=== PATIENT | female | born 1985 | race Caucasian/White ===

== ENCOUNTER 2016-09-27 18:43 | Emergency (ER) | payer OTHER ==
[~2016-09-27] VITALS: Ht 170.2 cm; Wt 86.2 kg
[~2016-09-27 18:43] MED LIST: BENZ100C PO; CLIN-44 PO; Ibuprofen PO; LORA-434 PO; OXYC-323 PO; PRED50TA PO; PROAIR RESPICL90 MCG IH; TOBR5DRO6 OS; TRAM-29 PO
[2016-09-27 20:26] LABS: BASO # 0.1 x10^3/uL (0.0-0.2); BASO % 1 % (0-3); EOS % 4 % (0-3); HEMATOCRIT 45.9 % (36.0-47.0); HEMOGLOBIN 15.3 g/dL (12.0-15.5); LYMPH # 4.2 x10^3/uL (1.0-4.8); LYMPH % 28 % (24-48); MEAN CORPUSCULAR HEMOGLOBIN 30 pg (25-35); MEAN CORPUSCULAR HGB CONC 33 g/dL (31-37); MEAN CORPUSCULAR VOLUME 90 fL (79-100); MONO % 6 % (0-9); NEUT % 61 % (31-73); PLATELET COUNT 192 x10^3/uL (140-400); RED BLOOD COUNT 5.12 x10^6/uL (3.50-5.40); RED CELL DISTRIBUTION WIDTH 13.2 % (11.5-14.5); WHITE BLOOD COUNT 14.9 x10^3/uL (4.0-11.0)
[2016-09-27 20:27] LABS: BILIRUBIN,URINE NEGATIVE (NEG); GLUCOSE,URINE NEGATIVE (NEG); NITRITE,URINE NEGATIVE (NEG); PH,URINE 6.5; PROTEIN,URINE NEGATIVE (NEG-TRACE); UROBILINOGEN,URINE 0.2 mg/dL (0.2 mg/dL)
[2016-09-27] MEDS ORDERED: HYDROCODONE/APAP 5/325MG TABLET. PO ONE (20:30)
[2016-09-27 20:37] LABS: CALCIUM 9.2 mg/dL (8.5-10.1); CREATININE 0.7 mg/dL (0.6-1.0); GFR 96.4; POTASSIUM 3.7 mmol/L (3.5-5.1)
[2016-09-27 20:37] LABS: BACTERIA,URINE MODERATE /HPF (0-FEW); SQUAMOUS EPITHELIAL CELL,UR FEW /LPF
[2016-09-27 20:38] LABS: TRICHOMONAS,URINE PRESENT; YEAST,URINE PRESENT /HPF
[2016-09-27 20:43] LABS: ALBUMIN 3.5 g/dL (3.4-5.0); TOTAL BILIRUBIN 0.3 mg/dL (0.2-1.0); TOTAL PROTEIN 6.9 g/dL (6.4-8.2)
[2016-09-27] MEDS ORDERED: DOXY100T PO (21:06)
--- NOTE | 2016-09-27 21:07 | PHYS DOC ---
Past Medical History Past Medical History: Anxiety, GERD, Other Additional Past Medical Histor: HYPOGLYCEMIA Past Surgical History: Cholecystectomy, Tubal ligation, Other Additional Past Surgical Histo: dental Alcohol Use: Occasionally Drug Use: None Adult General Chief Complaint Chief Complaint: ABDOMINAL PAIN HPI HPI Patient is a 31 year old female who presents with complaint of left-sided abdominal pain. Patient states that her symptoms started yesterday morning. Patient states that her pain is been intermittent and rates it as 8 out of 10. Patient states that this pain is sharp and cramping. Patient denies any associated nausea, vomiting, fevers, diarrhea, or bloody stools. Patient took Tylenol to help symptoms with no significant relief. The patient denies any dysuria or abnormal vaginal discharge. Review of Systems Review of Systems Constitutional: Denies fever or chills [] Eyes: Denies change in visual acuity, redness, or eye pain [] HENT: Denies nasal congestion or sore throat [] Respiratory: Denies cough or shortness of breath [] Cardiovascular: Denies chest pain or edema [] GI: Abdominal pain, denies nausea, vomiting, bloody stools or diarrhea [] : Denies dysuria or hematuria [] Musculoskeletal: Denies back pain or joint pain [] Integument: Denies rash or skin lesions [] Neurologic: Denies headache, focal weakness or sensory changes [] Current Medications Current Medications Current Medications Medications (Trade) Dose Ordered Sig/Elly Start Time Stop Time Status Last Admin Dose Admin Acetaminophen/ Hydrocodone Bitart (Lortab 5/325) 1 tab 1X ONCE 09/27/16 20:30 09/27/16 20:31 DC 09/27/16 20:54 1 TAB Ceftriaxone Sodium (Rocephin Im) 250 mg 1X ONCE 09/27/16 21:30 09/27/16 21:31 DC 09/27/16 21:26 250 MG Metronidazole (Flagyl) 2,000 mg 1X ONCE 09/27/16 21:30 09/27/16 21:31 DC 09/27/16 21:26 2,000 MG Allergies Allergies Allergies Coded Allergies Type Severity Reaction Last Updated Verified Penicillins Allergy Intermediate Nausea and Vomiting 11/19/15 Yes butorphanol tartrate Allergy Intermediate 11/19/15 Yes Physical Exam Physical Exam Constitutional: Alert, afebrile, appears in mild discomfort. [] HENT: Normocephalic, atraumatic, bilateral external ears normal, oropharynx moist, no oral exudates, nose normal. [] Eyes: PERRLA, EOMI, conjunctiva normal, no discharge. [] Neck: Normal range of motion, no tenderness, supple, no stridor. [] Cardiovascular:Heart rate regular rhythm, no murmur [] Lungs & Thorax: Bilateral breath sounds clear to auscultation [] Abdomen: Bowel sounds normal, soft, left lower quadrant tenderness to palpation , no guarding or rebound tenderness, no masses, no pulsatile masses. [] Skin: Warm, dry, no erythema, no rash. [] Back: No tenderness, no CVA tenderness. [] Extremities: No tenderness, no cyanosis, no clubbing, ROM intact, no edema. [] Neurologic: Alert and oriented X 3, normal motor function, normal sensory function, no focal deficits noted. [] Current Patient Data Vital Signs Vital Signs Date Time Temp Pulse Resp B/P Pulse Ox O2 Delivery O2 Flow Rate FiO2 09/27/16 21:13 58 116/70 99 Room Air 09/27/16 20:54 16 09/27/16 19:17 97.8 97.8 Lab Values Laboratory Tests Test 09/27/16 19:14 09/27/16 19:33 09/27/16 19:41 Urine Collection Type Unknown Urine Color Yellow Urine Clarity Clear Urine pH 6.5 Urine Specific [place] 1.010 Urine Protein Negativemg/dL (NEG-TRACE) Urine Glucose (UA) Negativemg/dL (NEG) Urine Ketones (Stick) Negativemg/dL (NEG) Urine Blood Large (NEG) Urine Nitrite Negative (NEG) Urine Bilirubin Negative (NEG) Urine Urobilinogen Dipstick 0.2mg/dL (0.2 mg/dL) Urine Leukocyte Esterase Moderate (NEG) Urine RBC 6-10/HPF (0-2) Urine WBC 11-20/HPF (0-4) Urine Squamous Epithelial Cells Few/LPF Urine Bacteria Moderate/HPF (0-FEW) Urine Mucus Slight/LPF Urine Trichomonas Present Urine Yeast Present/HPF White Blood Count 14.9x10^3/uL (4.0-11.0) H Red Blood Count 5.12x10^6/uL (3.50-5.40) Hemoglobin 15.3g/dL (12.0-15.5) Hematocrit 45.9% (36.0-47.0) Mean Corpuscular Volume 90fL (79-100) Mean Corpuscular Hemoglobin 30pg (25-35) Mean Corpuscular Hemoglobin Concent 33g/dL (31-37) Red Cell Distribution Width 13.2% (11.5-14.5) Platelet Count 192x10^3/uL (140-400) Neutrophils (%) (Auto) 61% (31-73) Lymphocytes (%) (Auto) 28% (24-48) Monocytes (%) (Auto) 6% (0-9) Eosinophils (%) (Auto) 4% (0-3) H Basophils (%) (Auto) 1% (0-3) Neutrophils # (Auto) 9.2x10^3uL (1.8-7.7) H Lymphocytes # (Auto) 4.2x10^3/uL (1.0-4.8) Monocytes # (Auto) 0.9x10^3/uL (0.0-1.1) Eosinophils # (Auto) 0.6x10^3/uL (0.0-0.7) Basophils # (Auto) 0.1x10^3/uL (0.0-0.2) Sodium Level 144mmol/L (136-145) Potassium Level 3.7mmol/L (3.5-5.1) Chloride Level 107mmol/L (98-107) Carbon Dioxide Level 30mmol/L (21-32) Anion Gap 7 (6-14) Blood Urea Nitrogen 4mg/dL (7-20) L Creatinine 0.7mg/dL (0.6-1.0) Estimated GFR (Cockcroft-Gault) 96.4 BUN/Creatinine Ratio 6 (6-20) Glucose Level 97mg/dL (70-99) Calcium Level 9.2mg/dL (8.5-10.1) Total Bilirubin 0.3mg/dL (0.2-1.0) Aspartate Amino Transferase (AST) 9U/L (15-37) L Alanine Aminotransferase (ALT) 18U/L (14-59) Alkaline Phosphatase 63U/L (46-116) Total Protein 6.9g/dL (6.4-8.2) Albumin 3.5g/dL (3.4-5.0) Albumin/Globulin Ratio 1.0 (1.0-1.7) Lipase 196U/L (73-393) POC Urine HCG, Qualitative Hcg negative (Negative) Laboratory Tests 09/27/16 19:33 Laboratory Tests 09/27/16 19:33 EKG EKG Not performed [] Radiology/Procedures Radiology/Procedures Not performed [] Course & Med Decision Making Course & Med Decision Making Pertinent Labs and Imaging studies reviewed. (See chart for details) Patient found to have Trichomonas in her urine. The patient was treated with 2 g of oral Flagyl. Due to presence of sexually-transmitted infection, the patient was also treated for possible coinfection with gonorrhea and chlamydia. Patient given IM Rocephin and patient will be discharged on 10 day course of doxycycline. Also recommended use of [id number] Gyne-Lotrimin for treatment of vaginal candidiasis. Advised patient to inform any sexual partners of positive test and recommend that they seek medical evaluation for possible presence of infection. Advised return to emergency department for any worsening symptoms. Patient voiced understanding and in agreement with treatment plan. Dragon Disclaimer Dragon Disclaimer This electronic medical record was generated, in whole or in part, using a voice recognition dictation system. Departure Departure Impression: Primary Impression: Trichomoniasis Additional Impressions: UTI (urinary tract infection) Yeast infection Disposition: 01 HOME, SELF-CARE Condition: IMPROVED Referrals: NO PCP (PCP) Patient Instructions: Trichomoniasis, Urinary Tract Infection Additional Instructions: You were found to have a sexually transmitted infection on your In the emergency department. It is recommended that you inform any sexual partners that they may have a sexually transmitted infection and will need medical evaluation for treatment. Failure to do so may result in reinfection with any further sexual contact. Follow-up in 5 days with your primary doctor and return to emergency department for any worsening symptoms. Scripts Doxycycline Hyclate 100 Mg Tablet1 Tab PO BID #20 TAB Prov:MARSHA STANFORD MD 09/27/16 Problem Qualifiers Additional Impressions: UTI (urinary tract infection) Urinary tract infection type: site unspecified Hematuria presence: without hematuria Qualified Code: N39.0 - Urinary tract infection, site not specified MARSHA STANFORD MD Sep 27, 2016 21:06
[2016-09-27 21:13] VITALS: BP 116/70
[2016-09-27] MEDS ORDERED: METRONIDAZOLE 500 MG TABLET. PO ONE (21:30)
[2016-09-27] MEDS ORDERED: CEFTRIAXONE IM 250 MG VIAL. IM ONE (21:30)
== END 2016-09-27 21:30 | disposition home or self-care (01) ==
LOC: ER 18:43
DX: A59.9 Trichomoniasis, unspecified (principal); B37.49 Other urogenital candidiasis; F41.9 Anxiety disorder, unspecified; K21.9 Gastro-esophageal reflux disease without esophagitis; Z90.49 Acquired absence of other specified parts of digestive tract; Z98.51 Tubal ligation status; Z88.8 Allergy status to other drugs, medicaments and biological substances; Z88.0 Allergy status to penicillin
CPT/HCPCS: 36415; 80053; 81001; 81025; 83690; 85027; 96372; 99284; J0696; 87086

== ENCOUNTER 2017-07-04 07:44 | Emergency (ER) | payer OTHER ==
[~2017-07-04] VITALS: Ht 170.2 cm; Wt 68.0 kg
[~2017-07-04 07:44] MED LIST changes: -CLIN-44 PO; +CLIN150C14 PO; +DOXY100T PO; -TRAM-29 PO; +TRAM-48 PO
[2017-07-04 08:10] VITALS: BP 132/77
--- NOTE | 2017-07-04 08:22 | PHYS DOC ---
Past Medical History Past Medical History: Anxiety, GERD, Other Additional Past Medical Histor: HYPOGLYCEMIA Past Surgical History: Cholecystectomy, Tubal ligation, Other Additional Past Surgical Histo: dental Alcohol Use: Occasionally Drug Use: None Adult General Chief Complaint Chief Complaint: FLANK PAIN HPI HPI Patient is a 31 year old female who presents with complaint of right-sided mid back pain. Patient states that her symptoms started 2 days ago and have progressively worsened since onset. Patient states that the pain is sharp and located in between her ribs towards her mid back. Patient states that the pain radiates around towards her front. Patient rates her pain currently as 9 out of 10. Patient states that the pain worsens with movement and with deep inspiration. Patient states that the pain seems to be relieved by direct palpation of the area. Patient has not had any associated symptoms including fevers, dysuria, hematuria, nausea, or vomiting. The patient states that she took 200 mg of ibuprofen yesterday which gave partial relief of symptoms. Review of Systems Review of Systems Constitutional: Denies fever or chills [] Eyes: Denies change in visual acuity, redness, or eye pain [] HENT: Denies nasal congestion or sore throat [] Respiratory: Denies cough or shortness of breath [] Cardiovascular: Denies chest pain or edema[] GI: Denies abdominal pain, nausea, vomiting, bloody stools or diarrhea [] : Denies dysuria or hematuria [] Musculoskeletal: Right-sided mid back pain[] Integument: Denies rash or skin lesions [] Neurologic: Denies headache, focal weakness or sensory changes [] All other systems were reviewed and found to be within normal limits, except as documented in this note. Current Medications Current Medications Current Medications Medications (Trade) Dose Ordered Sig/Elly Start Time Stop Time Status Last Admin Dose Admin Ketorolac Tromethamine (Toradol Im) 60 mg 1X ONCE 07/04/17 08:30 07/04/17 08:31 DC 07/04/17 08:46 60 MG Orphenadrine Citrate (Norflex) 60 mg 1X ONCE 07/04/17 08:30 07/04/17 08:31 DC 07/04/17 08:48 60 MG Allergies Allergies Allergies Coded Allergies Type Severity Reaction Last Updated Verified Penicillins Allergy Intermediate Nausea and Vomiting 11/19/15 Yes butorphanol tartrate Allergy Intermediate 11/19/15 Yes Physical Exam Physical Exam Constitutional: Alert, afebrile, appears in mild to moderate discomfort. [] HENT: Normocephalic, atraumatic, bilateral external ears normal, oropharynx moist, no oral exudates, nose normal. [] Eyes: PERRLA, EOMI, conjunctiva normal, no discharge. [] Neck: Normal range of motion, no tenderness, supple, no stridor. [] Cardiovascular:Heart rate regular rhythm, no murmur [] Lungs & Thorax: Bilateral breath sounds clear to auscultation [] Abdomen: Bowel sounds normal, soft, no tenderness, no masses, no pulsatile masses. [] Skin: Warm, dry, no erythema, no rash. [] Back: No midline tenderness, right mid thoracic intercostal tenderness to palpation, no CVA tenderness, no flank ecchymosis. [] Extremities: No tenderness, no cyanosis, no clubbing, ROM intact, no edema. [] Neurologic: Alert and oriented X 3, normal motor function, normal sensory function, no focal deficits noted. [] Current Patient Data Vital Signs Vital Signs Date Time Temp Pulse Resp B/P (MAP) Pulse Ox O2 Delivery O2 Flow Rate FiO2 07/04/17 08:10 98.0 74 18 132/77 (95) 98 Room Air 98.0 Lab Values Laboratory Tests Test 07/04/17 08:40 07/04/17 08:52 Urine Collection Type Unknown Urine Color Yellow Urine Clarity Cloudy Urine pH 6.0 Urine Specific [place] 1.015 Urine Protein Negative mg/dL (NEG-TRACE) Urine Glucose (UA) Negative mg/dL (NEG) Urine Ketones (Stick) Negative mg/dL (NEG) Urine Blood Negative (NEG) Urine Nitrite Negative (NEG) Urine Bilirubin Negative (NEG) Urine Urobilinogen Dipstick 0.2 mg/dL (0.2 mg/dL) Urine Leukocyte Esterase Trace (NEG) Urine RBC Occ /HPF (0-2) Urine WBC 1-4 /HPF (0-4) Urine Squamous Epithelial Cells Many /LPF Urine Bacteria Moderate /HPF (0-FEW) Urine Mucus Slight /LPF POC Urine HCG, Qualitative Hcg negative (Negative) EKG EKG Not performed[] Radiology/Procedures Radiology/Procedures Not performed[] Course & Med Decision Making Course & Med Decision Making Pertinent Labs and Imaging studies reviewed. (See chart for details) Patient was given IM Norflex and Toradol for treatment of suspected intercostal muscle strain. UA showed slight contamination but no convincing evidence for active infection. The patient will continue on ibuprofen and Flexeril for outpatient treatment. Advised follow-up in 3-5 days a primary doctor if symptoms are not improving and return to emergency department for any worsening symptoms. Patient voiced understanding and in agreement with treatment plan. Dragon Disclaimer Dragon Disclaimer This electronic medical record was generated, in whole or in part, using a voice recognition dictation system. Departure Departure Impression: Primary Impression: Intercostal muscle strain Disposition: HOME, SELF-CARE Condition: IMPROVED Referrals: NO PCP (PCP) Patient Instructions: Muscle Strain Additional Instructions: Follow-up to primary doctor in 3-5 days if symptoms are not improving. Return to emergency department for any worsening symptoms. Scripts Ibuprofen (IBUPROFEN) 600 Mg Tablet 600 MG PO Q6HRS Y for INFLAMMATION, #30 TAB Prov: MARSHA STANFORD MD 07/04/17 Cyclobenzaprine Hcl (CYCLOBENZAPRINE HCL) 10 Mg Tablet 1 TAB PO QHS Y for MUSCLE SPASMS, #15 TAB Prov: MARSHA STANFORD MD 07/04/17 Problem Qualifiers Primary Impression: Intercostal muscle strain Encounter type: initial encounter Qualified Codes: S29.011A - Strain of muscle and tendon of front wall of thorax, initial encounter MARSHA STANFORD MD Jul 04, 2017 08:22
[2017-07-04] MEDS ORDERED: KETOROLAC 60 MG/2 ML INJ. IM ONE (08:30)
[2017-07-04] MEDS ORDERED: ORPHENADRINE CITRATE 60 MG/2 ML VIAL. IM ONE (08:30)
[2017-07-04 08:58] LABS: BILIRUBIN,URINE NEGATIVE (NEG); GLUCOSE,URINE NEGATIVE (NEG); NITRITE,URINE NEGATIVE (NEG); PROTEIN,URINE NEGATIVE (NEG-TRACE); UROBILINOGEN,URINE 0.2 mg/dL (0.2 mg/dL)
[2017-07-04 09:14] LABS: SQUAMOUS EPITHELIAL CELL,UR MANY /LPF
[2017-07-04 09:16] LABS: BACTERIA,URINE MODERATE /HPF (0-FEW); RBC,URINE OCC /HPF (0-2)
[2017-07-04] MEDS ORDERED: IBUP-1007 PO (09:29)
[2017-07-04] MEDS ORDERED: CYCL10TA2 PO (09:29)
== END 2017-07-04 10:00 | disposition home or self-care (01) ==
LOC: ER 07:44
DX: S29.011A Strain of muscle and tendon of front wall of thorax, initial encounter (principal); M54.6 Pain in thoracic spine; F41.9 Anxiety disorder, unspecified; K21.9 Gastro-esophageal reflux disease without esophagitis; Z88.0 Allergy status to penicillin; Z90.49 Acquired absence of other specified parts of digestive tract; Z88.8 Allergy status to other drugs, medicaments and biological substances; X58.XXXA Exposure to other specified factors, initial encounter; Y93.89 Activity, other specified; Y92.89 Other specified places as the place of occurrence of the external cause; Y99.8 Other external cause status
CPT/HCPCS: 81001; 81025; 87086; 96372; 99284; J1885; J2360

== ENCOUNTER 2018-11-25 12:36 | Emergency (ER) | payer OTHER ==
[~2018-11-25] VITALS: Ht 157.5 cm; Wt 68.0 kg
[~2018-11-25 12:36] MED LIST changes: +CYCL10TA2 PO; +IBUP-1007 PO; -OXYC-323 PO; +OXYC1TAB15 PO
[2018-11-25] MEDS ORDERED: OXYMETAZOLINE 0.05% NASAL SPRAY 30ML BOTTLE. NS ONE (13:45)
[2018-11-25] MEDS ORDERED: predniSONE 10 MG TABLET PO ONE (13:45)
[2018-11-25] MEDS ORDERED: PRED50TA PO (13:51)
--- NOTE | 2018-11-25 13:52 | PHYS DOC ---
Past Medical History Past Medical History: Anxiety, GERD, Other Additional Past Medical Histor: HYPOGLYCEMIA Past Surgical History: Cholecystectomy, Tubal ligation, Other Additional Past Surgical Histo: dental Alcohol Use: Occasionally Drug Use: None Adult General Chief Complaint Chief Complaint: EARACHE/EAR PAIN HPI HPI 33-year-old female presents to ER for complaints of sinus congestion and left earache. Patient states over the past few days symptoms have been gradually worsening. She denies fever, N/V/D, chest tightness/pain, or SOA. She reports she has had sore throat but feels that is d/t drainage and cough. She reports she is Rx'd Zyrtec and reports she has been taking that daily. She is a daily smoker. Review of Systems Review of Systems Constitutional: Denies fever or chills [] Eyes: Denies change in visual acuity, redness, or eye pain [] HENT: Reports sinus congestion/drainage. Reports sore throat- denies throat swelling or difficulty swallowing. Reports lt ear ache Respiratory: Denies shortness of breath. Reports nonprod. cough Cardiovascular: Denies CP/tightness GI: Denies abdominal pain, nausea, vomiting, bloody stools or diarrhea [] : Denies urinary sxs Musculoskeletal: Denies back/neck pain/stiffness or joint pain [] Integument: Denies rash or skin lesions [] Neurologic: Denies headache, focal weakness or sensory changes [] Endocrine: Denies polyuria or polydipsia [] All other systems were reviewed and found to be within normal limits, except as documented in this note. Current Medications Current Medications Current Medications Medications (Trade) Dose Ordered Sig/Elly Start Time Stop Time Status Last Admin Dose Admin Oxymetazoline HCl (Afrin) 2 spray 1X ONCE 11/25/18 13:45 11/25/18 13:46 DC 11/25/18 13:55 2 SPRAY Prednisone (Prednisone) 50 mg 1X ONCE 11/25/18 13:45 11/25/18 13:46 DC 11/25/18 13:57 50 MG Allergies Allergies Allergies Coded Allergies Type Severity Reaction Last Updated Verified Penicillins Allergy Intermediate Nausea and Vomiting 11/19/15 Yes butorphanol tartrate Allergy Intermediate 11/19/15 Yes Physical Exam Physical Exam Constitutional: Well developed, well nourished, no acute distress, non-toxic appearance. [] HENT: Normocephalic, atraumatic, , oropharynx moist- cigarette odor on breath, mild pharyngeal erythema without swelling- uvula midline, no oral exudates, nose normal. [] Eyes: Pupils equal, conjunctiva normal, no discharge. [] Neck: Normal range of motion, no tenderness/nuchal rigidity, supple, no stridor/gross adenopathy Cardiovascular: Heart rate regular rhythm, no murmur [] Lungs & Thorax: Bilateral breath sounds clear to auscultation- resp. equal/nonlabored Skin: Warm, dry, no erythema, no rash. [] Back: No tenderness, full ROM Extremities: No tenderness, no cyanosis, no clubbing, ROM intact, no edema. [] Neurologic: Alert and oriented X 3, normal motor function, normal sensory function, no focal deficits noted. [] Psychologic: Affect normal, judgement normal, mood normal. [] Current Patient Data Vital Signs Vital Signs Date Time Temp Pulse Resp B/P (MAP) Pulse Ox O2 Delivery O2 Flow Rate FiO2 11/25/18 13:55 98.6 68 16 114/63 (80) 96 Room Air 98.6 EKG EKG [] Radiology/Procedures Radiology/Procedures [] Course & Med Decision Making Course & Med Decision Making Patient presented to the ER for complaints of sinus congestion and left earache. Patient's exam was unremarkable for signs of infection. Patient had clear fluid at left tympanic membrane no erythema or purulence. Tympanic membranes not bulging. Patient's throat had mild erythema without exudate or swelling. Patient had sinus congestion and was given dose of prednisone and Afrin spray. She was afebrile with stable vital signs. Discussed possible seasonal allergies/viral illness. Discussed OTC meds for tx and will provide pt with Rx for prednisone. Education provided on s&s to return to ER for, pt encouraged to increase fluid intake, and to avoid use of nasal spray for >3 days. Discharge instructions discussed and pt to f/u with PCP as needed. [] Dragon Disclaimer Dragon Disclaimer This electronic medical record was generated, in whole or in part, using a voice recognition dictation system. Departure Departure Impression: Primary Impression: Otalgia of left ear Additional Impression: Sinus congestion Disposition: 01 HOME, SELF-CARE Condition: STABLE Referrals: RENATA AGOSTO MD (PCP) Patient Instructions: Otalgia-Brief Additional Instructions: As discussed continue your prescribed Zyrtec. You can use over the counter Afrin as directed on container- avoid use of more than 3 consecutive days. Tylenol and/or ibuprofen as needed for pain as directed on container. Drink plenty of fluids. Avoid smoking. If symptoms persist or with concerns follow-up with your primary care physician for reevaluation and further care. Scripts Prednisone (PREDNISONE) 50 Mg Tablet 1 TAB PO DAILY, #4 TAB 0 Refills Start on 11/26/18 Prov: LARRY RENTERIA APRN 11/25/18 Problem Qualifiers LARRY RENTERIA APRN November 25, 2018 13:52
[2018-11-25 13:55] VITALS: BP 114/63
== END 2018-11-25 14:17 | disposition home or self-care (01) ==
LOC: ER 12:36
DX: H92.02 Otalgia, left ear (principal); R09.81 Nasal congestion; J02.9 Acute pharyngitis, unspecified; K21.9 Gastro-esophageal reflux disease without esophagitis; Z88.0 Allergy status to penicillin; Z88.8 Allergy status to other drugs, medicaments and biological substances
CPT/HCPCS: 99283; J7512

== ENCOUNTER 2019-07-28 13:39 | Emergency (ER) | payer MEDICAID, OTHER ==
[~2019-07-28] VITALS: Ht 170.2 cm; Wt 68.9 kg
[2019-07-28 14:42] VITALS: BP 144/88
[2019-07-28] MEDS ORDERED: AMOX875T PO (15:14)
[2019-07-28] MEDS ORDERED: ONDA4TAB12 PO (15:14)
--- NOTE | 2019-07-28 15:14 | PHYS DOC ---
Past Medical History Past Medical History: Anxiety, GERD, Other Additional Past Medical Histor: HYPOGLYCEMIA Past Surgical History: Cholecystectomy, Tubal ligation, Other Additional Past Surgical Histo: dental Alcohol Use: Occasionally Drug Use: None Adult General Chief Complaint Chief Complaint: FLU SYMPTOM HPI HPI Patient is a 33 year old female who presents with loss of appetite, nausea, vomiting, sore throat, runny nose, cough that started on 2019. The patient is also been having bilateral ear pain. The patient has been able to keep fluids down until today and states she's been having trouble keeping fluids down this morning. Review of Systems Review of Systems Constitutional: Reports fever or chills and body aches. Eyes: Denies change in visual acuity, redness, or eye pain [] HENT: Reports nasal congestion, sore throat, and runny nose. Respiratory: Reports cough. Denies shortness of breath. Cardiovascular: No additional information not addressed in HPI [] GI: Reports nausea and vomiting. Denies abdominal pain, bloody stools or diarrhea [] : Denies dysuria or hematuria [] Musculoskeletal: Denies back pain or joint pain [] Integument: Denies rash or skin lesions [] Neurologic: Reports headache, denies focal weakness or sensory changes [] Endocrine: Denies polyuria or polydipsia [] Complete systems were reviewed and found to be within normal limits, except as documented in this note. Allergies Allergies Allergies Coded Allergies Type Severity Reaction Last Updated Verified Penicillins Allergy Intermediate Nausea and Vomiting 11/19/15 Yes butorphanol tartrate Allergy Intermediate 11/19/15 Yes Physical Exam Physical Exam Constitutional: Well developed, well nourished, no acute distress, non-toxic appearance. [] HENT: Normocephalic, atraumatic, bilateral external ears normal, bilateral tympanic membranes are erythematous and bulging, oropharynx moist, tonsils are 2+/4 with oral exudates, nose turbinates are inflamed. Eyes: PERRLA, EOMI, conjunctiva normal, no discharge. [] Neck: Normal range of motion, no tenderness, supple, no stridor. [] Cardiovascular:Heart rate regular rhythm, no murmur [] Lungs & Thorax: Bilateral breath sounds clear to auscultation [] Abdomen: Bowel sounds normal, soft, no tenderness, no masses, no pulsatile masses. [] Skin: Warm, dry, no erythema, no rash. [] Neurologic: Alert and oriented X 3, normal motor function, normal sensory function, no focal deficits noted. [] Psychologic: Affect normal, judgement normal, mood normal. [] Current Patient Data Vital Signs Vital Signs Date Time Temp Pulse Resp B/P (MAP) Pulse Ox O2 Delivery O2 Flow Rate FiO2 07/28/19 14:42 99.8 63 12 144/88 (106) 94 Room Air 99.8 EKG EKG [] Radiology/Procedures Radiology/Procedures [] Course & Med Decision Making Course & Med Decision Making Pertinent Labs and Imaging studies reviewed. (See chart for details) The patient appears to have the Flu clinically and also has Otitis media and tonsilitis. Discussed with patient the importance of drinking plenty of fluids. I also discussed the importance of rest. It was discussed with the patient that she is contagious and to stay away from others until it has been a week since the start of her symptoms. Discussed with the patient that she can take Zyrtec per label instructions for runny nose. Also discussed the proper control of fever by rotating Tylenol and Ibuprofen at home. Will give the patient Decadron in the ER for symptom control. Will also prescribe Zofran for nausea. Dragon Disclaimer Dragon Disclaimer This electronic medical record was generated, in whole or in part, using a voice recognition dictation system. Departure Departure Impression: Primary Impression: Otitis media Additional Impressions: Viral syndrome Acute tonsillitis Disposition: HOME, SELF-CARE Condition: STABLE Referrals: RENATA AGOSTO MD (PCP) Patient Instructions: Otitis Media, Adult, Viral Syndrome Additional Instructions: Thank you for visiting [facility]. We appreciate you trusting us with your care. If any additional problems come up don't hesitate to return to visit us. Please follow up with your primary care provider so they can plan additional care if needed and know about the problem that you had. If symptoms worsen come back to the Emergency Department. Any concerning symptoms that start such as chest pain, shortness of air, weakness or numbness on one side of the body, running high fevers or any other concerning symptoms return to the ER. Please fill your medications at any pharmacy and follow the prescription instructions. Please drink plenty of fluids. If unable to keep fluids down please return to ER. Please get Tylenol and Ibuprofen over the counter. Give each medication every 6 hours as directed by the medication labels. In order to utilize the peak of the medications stagger the medications to where the child is getting one of the medications every 3 hours. For example if you give Ibuprofen at 3 PM, you then give Tylenol at 6 PM and Ibuprofen again at 9 PM, and then Tylenol at midnight. Please get Zyrtec over the counter and take per label instructions for mike no se. You have been prescribed an antibiotic today to help fight your infection. Please take all of the antibiotic as directed. If after 48 hours the infection is not improving, please return for more care. If the infection worsens, return to ER for additional care. Scripts Amoxicillin (AMOXICILLIN) 875 Mg Tablet 1 TAB PO BID for 10 Days, #20 TAB Prov: INES NEWMAN APRN 07/28/19 Ondansetron (ONDANSETRON ODT) 4 Mg Tab.rapdis 1 TAB PO PRN Q6-8HRS PRN for NAUSEA, #16 TAB Prov: INES NEWMAN APRN 07/28/19 Problem Qualifiers Primary Impression: Otitis media Chronicity: acute Laterality: bilateral Recurrence: not specified as recurrent Spontaneous tympanic membrane rupture: without spontaneous ruptur e Additional Impressions: Acute tonsillitis Pharyngitis/tonsillitis etiology: unspecified etiology Qualified Codes: J03.90 - Acute tonsillitis, unspecified INES NEWMAN APRN Jul 28, 2019 15:14
[2019-07-28] MEDS: DEXAMETHASONE 4 MG TABLET PO STA (15:22)
== END 2019-07-28 15:27 | disposition home or self-care (01) ==
LOC: ER 13:39
DX: J03.90 Acute tonsillitis, unspecified (principal); B34.9 Viral infection, unspecified; H66.93 Otitis media, unspecified, bilateral; K21.9 Gastro-esophageal reflux disease without esophagitis; Z88.0 Allergy status to penicillin; Z88.8 Allergy status to other drugs, medicaments and biological substances
CPT/HCPCS: 99283; J8540

== ENCOUNTER → 2020-05-22 | Outpatient (CLI) | payer MEDICAID ==
[~2020-05-22] MED LIST changes: +AMOX875T PO; +ONDA4TAB12 PO
[2020-05-22 16:49] LABS: BASO # 0.1 x10^3/uL (0.0-0.2); BASO % 1 % (0-3); EOS # 0.4 x10^3/uL (0.0-0.7); EOS % 3 % (0-3); HEMATOCRIT 43.2 % (36.0-47.0); HEMOGLOBIN 14.7 g/dL (12.0-15.5); LYMPH # 3.6 x10^3/uL (1.0-4.8); LYMPH % 24 % (24-48); MEAN CORPUSCULAR HEMOGLOBIN 31 pg (25-35); MEAN CORPUSCULAR HGB CONC 34 g/dL (31-37); MEAN CORPUSCULAR VOLUME 90 fL (79-100); MONO % 7 % (0-9); NEUT # 9.6 x10^3/uL (1.8-7.7); NEUT % 65 % (31-73); PLATELET COUNT 217 x10^3/uL (140-400); RED BLOOD COUNT 4.78 x10^6/uL (3.50-5.40); RED CELL DISTRIBUTION WIDTH 12.9 % (11.5-14.5); WHITE BLOOD COUNT 14.6 x10^3/uL (4.0-11.0)
== END ==
LOC: ONCLAB 16:17
PROVIDERS: ATTEND Internal Medicine Hematology & Oncology
DX: D45 Polycythemia vera (principal)
CPT/HCPCS: 81270; 85025

== ENCOUNTER 2020-07-28 09:41 | Emergency (ER) | payer MEDICAID ==
[~2020-07-28] VITALS: Ht 172.7 cm; Wt 75.0 kg
[~2020-07-28 09:41] MED LIST changes: -CLIN150C14 PO; +CLIN150C15 PO
[2020-07-28 12:20] VITALS: BP 125/62
[2020-07-28] MEDS ORDERED: CARB-171 RIGHT EAR (12:50)
[2020-07-28] MEDS ORDERED: AZIT500T4 PO (12:50)
--- NOTE | 2020-07-28 12:50 | ED.ADGEN ---
Past Medical History Past Medical History: Anxiety, GERD, Other Additional Past Medical Histor: HYPOGLYCEMIA, seasonal allergies Past Surgical History: Cholecystectomy, Tubal ligation, Other Additional Past Surgical Histo: dental - all teeth extracted Smoking Status: Current Every Day Smoker Alcohol Use: Occasionally Drug Use: None General Adult EDM: Chief Complaint: EARACHE/EAR PAIN HPI: HPI: Patient is a 34 year old female who presents to the emergency department with complaints of right ear pain and a sore throat for the last 2 days. She denies any fever, cough, shortness of breath, nausea, vomiting, diarrhea, abdominal pain, rash, body aches, or fatigue. She denies any known exposure to COVID-19. Patient denies taking anything for pain prior to arrival. She currently rates her pain at 3 out of 10 on pain scale, she denies any alleviating or exacerbating factors. Review of Systems: Review of Systems: Complete ROS is negative unless otherwise noted in HPI. Allergies: Allergies: Allergies Coded Allergies Type Severity Reaction Last Updated Verified Penicillins Allergy Intermediate Nausea and Vomiting 11/19/15 Yes butorphanol tartrate Allergy Intermediate 11/19/15 Yes Physical Exam: PE: See Above Constitutional: Well developed, well nourished, no acute distress, non-toxic appearance. [] HENT: Normocephalic, atraumatic, bilateral external ears normal, left TM normal, nose normal; unable to visualize right due to wax debridement, moderate erythema posterior pharynx with exudate present on the right. [] Eyes: PERRLA, EOMI, conjunctiva normal, no discharge. [] Neck: Normal range of motion, no stridor; right anterior chain lymphadenopathy present. [] Cardiovascular:Heart rate regular rhythm Lungs & Thorax: Respirations even and unlabored, no retractions, no respiratory distress Skin: Warm, dry, no erythema, no rash. [] Extremities: No cyanosis, ROM intact, no edema. [] Neurologic: Alert and oriented X 3, no focal deficits noted. [] Psychologic: Affect normal, judgement normal, mood normal. [] Current Patient Data: Vital Signs: Vital Signs Date Time Temp Pulse Resp B/P (MAP) Pulse Ox O2 Delivery O2 Flow Rate FiO2 07/28/20 12:20 98.0 71 18 125/62 (83) 99 Room Air 98.0 EKG: EKG: [] Heart Score: Risk Factors: Risk Factors: DM, Current or recent (<one month) smoker, HTN, HLP, family history of CAD, obesity. Risk Scores: Score 0 - 3: 2.5% MACE over next 6 weeks - Discharge Home Score 4 - 6: 20.3% MACE over next 6 weeks - Admit for Clinical Observation Score 7 - 10: 72.7% MACE over next 6 weeks - Early Invasive Strategies Radiology/Procedures: Radiology/Procedures: [] Course & Med Decision Making: Course & Med Decision Making Pertinent Labs and Imaging studies reviewed. (See chart for details) [] Dragon Disclaimer: Dragon Disclaimer: This electronic medical record was generated, in whole or in part, using a voice recognition dictation system. Departure Departure Impression: Primary Impression: Pharyngitis, acute Additional Impression: Right ear impacted cerumen Disposition: 01 DC HOME SELF CARE/HOMELESS Condition: STABLE Referrals: RENATA AGOSTO MD (PCP) Patient Instructions: Cerumen Impaction, Viral and Bacterial Pharyngitis, [id number] Additional Instructions: Fill prescriptions and use as directed. Recommend warm salt water gargles as needed for relief of discomfort. Alternate Tylenol and ibuprofen as needed for fever/pain. Discard your toothbrush tomorrow and begin using a new toothbrush. Follow-up with primary care doctor if symptoms persist. Return to the ER if symptoms worsen. Scripts Carbamide Peroxide (EAR WAX REMOVAL) 15 Ml Drops 5 DROP RIGHT EAR DAILY for 7 Days, #1 BOTTLE 0 Refills Prov: STEPHANIE MACHADO [employer] 07/28/20 Azithromycin (AZITHROMYCIN TABLET) 500 Mg Tablet 1 TAB PO DAILY for 5 Days, #5 TAB 0 Refills Prov: STEPHANIE MACHADO [employer] 07/28/20 Problem Qualifiers Primary Impression: Pharyngitis, acute Pharyngitis/tonsillitis etiology: unspecified etiology Qualified Codes: J02.9 - Acute pharyngitis, unspecified STEPHANIE MACHADO [employer] Jul 28, 2020 12:50
== END 2020-07-28 12:55 | disposition home or self-care (01) ==
LOC: ER 09:41
DX: H61.21 Impacted cerumen, right ear (principal); J02.9 Acute pharyngitis, unspecified; K21.9 Gastro-esophageal reflux disease without esophagitis; F17.200 Nicotine dependence, unspecified, uncomplicated; Z88.0 Allergy status to penicillin; Z88.8 Allergy status to other drugs, medicaments and biological substances
CPT/HCPCS: 99283

== ENCOUNTER 2021-04-21 08:54 | Emergency (ER) | payer MEDICAID ==
[~2021-04-21] VITALS: Ht 170.2 cm; Wt 72.3 kg
[~2021-04-21 08:54] MED LIST changes: +AZIT500T4 PO; +CARB-171 RIGHT EAR; -CLIN150C15 PO; +CLIN150C16 PO
[2021-04-21 09:00] VITALS: BP 147/67
[2021-04-21] MEDS ORDERED: METH-561 PO (10:05)
--- NOTE | 2021-04-21 10:06 | PHYS DOC ---
Past Medical History Past Medical History: Anxiety, GERD, Other Additional Past Medical Histor: HYPOGLYCEMIA, seasonal allergies, slipped disc, tension headaches Past Surgical History: Cholecystectomy, Tubal ligation, Other Additional Past Surgical Histo: dental - all teeth extracted Smoking Status: Current Every Day Smoker Alcohol Use: None Drug Use: None General Adult EDM: Chief Complaint: UPPER EXTREMITY PAIN HPI: HPI: 35-year-old female past medical history of disc herniation, tension headaches (takes Flexeril), anxiety (on Zoloft) and tobacco use, presents to the ED with complaints of right upper extremity pain has been intermittent, waxing waning for the past 2 months. Patient reports pain along the dorsal aspect of her forearm that shoots down into her fingers with associated tingling and numbness to all 5 fingers, states her second and third digit feels sore and bruised. Pain is worse over lateral aspect of forearm than medial. Denies any blunt trauma to the right upper extremity. Is right-hand dominant. Cannot recall any overuse syndrome-does not sew, play tennis or golf. Cannot recall any increase physical activity or heavy lifting. Denies any blunt elbow injury or neck pain. No associated rash, skin color changes, bruising, weakness or loss of sensation. Reports her father has a history of PAD. Gives blood but IV is always placed in her left antecubital fossa. Had her Moderna vaccine March 19, 2021. Reports swelling of her second and third digit, had to remove her rings. No associated swelling of the forearm, wrist or metacarpals. Follows with Dr. Loli Molina. Denies any history of IV drug use or history of prior blood clots. Is not on any control. Review of Systems: Review of Systems: Constitutional: Denies fever or chills. [] Eyes: Denies change in visual acuity. [] HENT: Denies nasal congestion or sore throat. [] Respiratory: Denies cough or shortness of breath. [] Cardiovascular: Denies chest pain or edema. [] GI: Denies nausea or vomiting Musculoskeletal: Denies back pain or localized joint swelling Integument: Denies rash or diaphoresis Neurologic: Denies focal weakness or lack of sensation Lymphatic: Denies swollen glands. [] Psychiatric: Denies depression or anxiety. [] Heart Score: C/O Chest Pain: No Risk Factors: Risk Factors: DM, Current or recent (<one month) smoker, HTN, HLP, family history of CAD, obesity. Risk Scores: Score 0 - 3: 2.5% MACE over next 6 weeks - Discharge Home Score 4 - 6: 20.3% MACE over next 6 weeks - Admit for Clinical Observation Score 7 - 10: 72.7% MACE over next 6 weeks - Early Invasive Strategies Allergies: Allergies: Allergies Coded Allergies Type Severity Reaction Last Updated Verified Penicillins Allergy Intermediate Nausea and Vomiting 11/19/15 Yes butorphanol tartrate Allergy Intermediate 11/19/15 Yes Physical Exam: PE: Constitutional: Well developed, well nourished, no acute distress, non-toxic appearance. HENT: Normocephalic, atraumatic, Eyes: EOMI, conjunctiva normal, no discharge. Neck: Normal range of motion, supple, no midline neck pain Cardiovascular: S1/2 present, regular rhythm Lungs & Thorax: Speaking in full sentences, bilateral equal chest rise, no tachypnea or increased work of breathing Skin: Warm, dry, no erythema, no rash. [] Back: No midline spinal step-offs or tenderness, no CVA tenderness. [] Extremities: Cap refill right upper extremity less than 1 second, equal radial pulses, no pain over right olecranon/epicondyle/carpals/shoulder joint or phalanges, no cyanosis, no lower extremity edema, 5/5 equal upper extremity muscle strength, axillary nerve sensation intact, normal range of motion of entire right upper extremity, negative Phalen and Tinel's sign, no signs of upper extremity trauma, minimal swelling to second and third phalanges, no wrist or forearm edema, no clubbing Neurologic: Alert and oriented X 3, normal motor function, normal sensory function, no focal deficits noted. [] Psychologic: Affect normal, judgement normal, mood normal. [] Current Patient Data: Vital Signs: Vital Signs Date Time Temp Pulse Resp B/P (MAP) Pulse Ox O2 Delivery O2 Flow Rate FiO2 04/21/21 09:00 99.0 82 18 147/67 (93) 100 Room Air 99.0 EKG: EKG: [] Radiology/Procedures: Radiology/Procedures: [] Course & Med Decision Making: Course & Med Decision Making Pertinent Labs and Imaging studies reviewed. (See chart for details) Concern for right upper extremity neuropathy likely originating at the elbow - could represent both median and ulnar neuropathy. Patient with normal neurovascular exam, normal muscle strength and sensation. Patient reports no associated difficulties walking, blurry vision, headache, neck pain, or focal deficits reports she takes Flexeril at night as needed for tension headaches. UE DVT considered but no c/w physcial exam-has swelling only distal to 2 jonathan MCP joints, no forearm swelling or pitting edema. Will do trial of Robaxin-patient understands to not take these medications together, and do not take Robaxin in addition to other depressants including alcohol or other sedative medications (do not drive or operate heavy machinery with this medication). Will discharge home with strict ED return precautions were given for weakness, lack of sensation, skin color changes, trauma or severe pain. Encouraged urgent outpatient follow-up with PMD and neurology to consider EMG. Life-threatening processes were considered but are low suspicion at this time, given history, physical exam and ED workup. Pt was educated on all prescription medications and adverse effects. All patient's questions were answered and pt was stable at time of discharge. Life/limb-threatening differential includes but is not limited to, trauma (fracture, dislocation, laceration, compartment syndrome, tendon or ligament injury), neurovascular injury or deficitcva/tia, infection (osteomyelitis, abscess, cellulitis, septic arthritis, necrotizing fasciitis), deep vein thrombosis, renal/cardiac/liver disease, medication adverse effect, lymphedema/anasarca, vascular insufficiency or malignancy, I have spoken with the patient and/or caregivers. I explained the patient's condition, diagnoses and treatment plan based on the information available to me at this time. I have answered the patient and/or caregiver's questions and addressed any concerns. The patient and/or caregivers have a good understanding of patient's diagnosis, condition and treatment plan as can be expected at this point. Vital signs have been stable. Patient's condition is stable and appropriate for discharge from the emergency department. Patient will pursue further outpatient evaluation with primary care physician or other designated or consulting physician as outlined in the discharge instructions. The patient and/or caregivers are agreeable to this plan of care and follow-up instructions have been explained in detail. The patient and/or caregivers have received these instructions in written form and have expressed an understanding of the discharge instructions. The patient and/or caregivers are aware that any significant change of condition or worsening of symptoms should prompt immediate return to this or the closest emergency department or call to 911Ty Cisneros Disclaimer: Blayne Disclaimer: This electronic medical record was generated, in whole or in part, using a voice recognition dictation system. Departure Departure Impression: Primary Impression: Neuropathy of right upper extremity Disposition: HOME / SELF CARE / HOMELESS Condition: STABLE Referrals: LOLI MOLINA MD (PCP) Follow-up with your primary care physician in 24 to 48 hours OR FOLLOW UP WITH FAMILY MEDICINE: [address], [address] [place] [address] Patient Instructions: Pain, Neuropathic Additional Instructions: FOLLOW UP WITH NEUROLOGY: FOR DEFINITIVE MANAGEMENT of upper extremity neuropathy [facility] [address] [place], [address] [place] [address] EMERGENCY DEPARTMENT GENERAL DISCHARGE INSTRUCTIONS Thank you for coming to [facility] (ED) today and trusting us with you care. We trust that you had a positive experience in our Emergency Department. If you wish to speak to the department management, you may call the Director at [phone]. YOUR FOLLOW UP INSTRUCTIONS ARE FOLLOWS: 1. Do you have a private Doctor? If you do not have a private doctor, please ask for a resource list of physicians or clinics that may be able to assist you with follow up care. 2. The Emergency Physicain has interpreted your x-rays. The X-Ray specialist will also review them. If there is a change in the findings, you will be notified in 48 hours when at all possible. 3. A lab test or culture has been done, your results will be reviewed and you will be notified if you need a change in treatment. ADDITIONAL INSTRUCTIONS AND INFORMATION: 1. Your care today has been supervised by a physician who is specially trained in emergency care. Many problems require more than one evaluation for a complete diagnosis and treatment. We recommend that you schedule your follow up appointment as recommended to ensure complete treatment of you illness or injury. If you are unable to obtain follow up care and continue to have a problem, or if your condition worsens, we recommend that you return to the ED. 2. We are not able to safely determine your condition over the phone nor are we able to give sound medical advice over the phone. For these safety reasons, if you call for medical advice we will ask you to come to the ED for further evaluation. 3. If you have any questions regarding these discharge instructions please call the ED at [phone]. SAFETY INFORMATION: In the interest of safety, wellness, and injury prevention; we encourage you to wear your sealbelt, if you smoke; quite smoking, and we encourage family to use a protective helmet for bicycling and other sporting events that present an increased risk for head injury. IF YOUR SYMPTOMS WORSEN OR NEW SYMPTOMS DEVELOP, OR YOU HAVE CONCERNS ABOUT YOUR CONDITION; OR IF YOUR CONDITION WORSENS WHILE YOU ARE WAITING FOR YOUR FOLLOW UP APPOINTMENT; EITHER CONTACT YOUR PRIMARY CARE DOCTOR, THE PHYSICIAN WHOSE NAME AND NUMBER YOU WERE GIVEN, OR RETURN TO THE ED IMMEDIATELY. Scripts Methocarbamol (METHOCARBAMOL) 500 Mg Tablet 500 MG PO QID, #24 TAB Prov: LARRY EDWARDS DO 04/21/21 LARRY EDWARDS DO Apr 21, 2021 10:06
== END 2021-04-21 10:15 | disposition home or self-care (01) ==
LOC: ER 08:54
DX: G62.9 Polyneuropathy, unspecified (principal); R51.9 Headache, unspecified; K21.9 Gastro-esophageal reflux disease without esophagitis; F17.200 Nicotine dependence, unspecified, uncomplicated; Z88.0 Allergy status to penicillin; Z88.8 Allergy status to other drugs, medicaments and biological substances
CPT/HCPCS: 99283

== ENCOUNTER → 2021-09-14 | Outpatient (CLI) | payer MEDICAID ==
[~2021-09-14] MED LIST changes: +CYCL10TA19 PO; -CYCL10TA2 PO; +METH-561 PO
--- NOTE | 2021-09-14 17:12 | KCIC ---
EXAM: XR CERVICAL SPINE 4-5V 09/14/2021 10:38 AM CLINICAL INDICATION: Neck pain for 5 days, numbness to hand COMPARISON: None TECHNIQUE: AP, odontoid, right and left oblique, lateral, and sunrise views of the cervical spine. FINDINGS: No acute fracture. Alignment is normal. There is mild cervical kyphosis. Mild disc space sp urring at C5-C6 anteriorly. Disc spaces are otherwise maintained. Facet joints are normal. Prevertebr al soft tissues is normal. IMPRESSION: Very mild degenerative disc disease at C5-C6 with mild cervical kyphosis. Electronically signed by: Jamia Bonilla MD (09/14/2021 5:10 PM) [id number]
== END ==
LOC: KCIC 10:31
PROVIDERS: ATTEND Family Medicine
DX: M50.322 Other cervical disc degeneration at C5-C6 level (principal); M40.292 Other kyphosis, cervical region
CPT/HCPCS: 72050